=== PATIENT | male | born 1995 | race Caucasian/White ===

== ENCOUNTER 2018-03-04 11:51 | Emergency (ER) | payer OTHER, MEDICAID, SELFPAY ==
[2018-03-04 12:40] LABS: BASO # 0.1 10^3/uL (0.0-0.2); BASO % 0.4 % (0.0-1.0); EOS # 0.1 10^3/uL (0.0-0.50); EOS % 0.5 % (0.0-3.0); HEMATOCRIT 44.3 % (42.0-52.0); HEMOGLOBIN 15.3 g/dl (13.5-17.5); IMMATURE GRANULOCYTE % 0.4 % (0-3.0); LYMPH # 2.2 10^3/uL (1.5-6.5); MEAN CORPUSCULAR HEMOGLOBIN 30.8 pg (27.0-33.0); MEAN CORPUSCULAR HGB CONC 34.5 g/dl (32.0-36.5); MEAN CORPUSCULAR VOLUME 89.3 fl (80.0-96.0); MONO # 0.6 10^3/uL (0.0-0.8); MONO % 4.3 % (0.0-5.0); NEUTROPHILS # 10.8 10^3/uL (1.8-7.7); NEUTROPHILS % 78.4 % (36.0-66.0); PLATELET COUNT, AUTOMATED 219 10^3/uL (150-450); RED BLOOD COUNT 4.96 10^6/uL (4.30-6.10); RED CELL DISTRIBUTION WIDTH 12.5 % (11.5-14.5); WHITE BLOOD COUNT 13.8 10^3/uL (4.0-10.0)
[2018-03-04] MEDS: ONDANSETRON 4MG/2ML VIAL (J2405) IV ×2 (12:41→14:47)
[2018-03-04] MEDS: NS 1,000 ML IV (12:41)
[2018-03-04] MEDS: MORPHINE 2 MG/ML 1ML SYRINGE (J2270) IV (12:42)
[2018-03-04 12:43] LABS: KETONE, URINE AUTO RFX 1+ mg/dL (NEGATIVE); LEUKOCYTE ESTERASE UR AUTO RFX NEGATIVE (NEGATIVE); NITRITE, URINE AUTO RFX NEGATIVE (NEGATIVE); RBC, URINE AUTO RFX 3 /HPF (0-3); SPECIFIC GRAVITY UR AUTO RFX 1.016 (1.002-1.035); SQUAM EPITHELIAL CELL UR AURFX 0 /HPF (0-6); WBC, URINE AUTO RFX 0 /HPF (0-3)
[2018-03-04 12:59] LABS: ALBUMIN 4.9 GM/DL (3.2-5.2); ALBUMIN/GLOBULIN RATIO 1.36 (1.00-1.93); ALKALINE PHOSPHATASE 78 U/L (45-117); ALT/SGPT 24 U/L (12-78); ANION GAP 7 MEQ/L (8-16); AST/SGOT 19 U/L (7-37); BILIRUBIN,DIRECT 0.3 MG/DL (0.0-0.2); BLOOD UREA NITROGEN 17 MG/DL (7-18); CARBON DIOXIDE LEVEL 28 MEQ/L (21-32); CHLORIDE LEVEL 105 MEQ/L (98-107); CREATININE FOR GFR 1.07 MG/DL (0.70-1.30); GLUCOSE, FASTING 111 MG/DL (70-100); LIPASE 96 U/L (73-393); POTASSIUM SERUM 3.9 MEQ/L (3.5-5.1); SODIUM LEVEL 140 MEQ/L (136-145); TOTAL PROTEIN 8.5 GM/DL (6.4-8.2)
[2018-03-04] MEDS ORDERED: ISOVUE-370 76% 100ML VIAL (Q9967) As Ordered (15:13)
[2018-03-04 15:16] LABS: AMPHETAMINES LEVEL URINE NEGATIVE (NEGATIVE); BARBITURATES URINE NEGATIVE (NEGATIVE); BENZODIAZEPINES URINE NEGATIVE (NEGATIVE); CANNABINOIDS URINE NEGATIVE (NEGATIVE); COCAINE METABOLITE URINE NEGATIVE (NEGATIVE); METHADONE URINE NEGATIVE (NEGATIVE); OPIATES URINE NEGATIVE (NEGATIVE); PHENCYCLIDINE URINE NEGATIVE (NEGATIVE)
[2018-03-04] MEDS: METOCLOPRAMIDE INJ 10MG/2ML VIAL (J2765) IV (16:25)
== END 2018-03-04 16:50 | disposition home or self-care (01) ==
LOC: M ED 11:51
DX: R11.2 Nausea with vomiting, unspecified (principal); Z87.09 Personal history of other diseases of the respiratory system; Z87.730 Personal history of (corrected) cleft lip and palate; Z88.1 Allergy status to other antibiotic agents; Q60.0 Renal agenesis, unilateral
CPT/HCPCS: J2405

== ENCOUNTER 2018-03-07 11:39 | Emergency (ER) | payer OTHER ==
[2018-03-07] MEDS: NS 1,000 ML IV ×2 (12:23→13:50)
[2018-03-07 12:34] LABS: BASO % 0.4 % (0.0-1.0); EOS # 0.1 10^3/uL (0.0-0.50); EOS % 0.5 % (0.0-3.0); IMMATURE GRANULOCYTE % 0.3 % (0-3.0); LYMPH # 1.5 10^3/uL (1.5-6.5); LYMPH % 15.7 % (24.0-44.0); MEAN CORPUSCULAR HEMOGLOBIN 30.8 pg (27.0-33.0); MEAN CORPUSCULAR HGB CONC 34.8 g/dl (32.0-36.5); MEAN CORPUSCULAR VOLUME 88.5 fl (80.0-96.0); MONO # 0.3 10^3/uL (0.0-0.8); MONO % 3.6 % (0.0-5.0); NEUTROPHILS # 7.6 10^3/uL (1.8-7.7); NEUTROPHILS % 79.5 % (36.0-66.0); PLATELET COUNT, AUTOMATED 216 10^3/uL (150-450); RED CELL DISTRIBUTION WIDTH 12.1 % (11.5-14.5); WHITE BLOOD COUNT 9.6 10^3/uL (4.0-10.0)
[2018-03-07] MEDS: DICYCLOMINE INJ 20MG/2ML (J0500) IM (12:43)
[2018-03-07] MEDS: TRIMETHOBENZAMIDE HCL INJ 200 MG/2 ML VIAL (J3250) IM (12:44)
[2018-03-07] MEDS: KETOROLAC 30 MG/ML VIAL (J1885) IV (12:46)
[2018-03-07 12:58] LABS: ALBUMIN 4.9 GM/DL (3.2-5.2); ALBUMIN/GLOBULIN RATIO 1.36 (1.00-1.93); ALKALINE PHOSPHATASE 73 U/L (45-117); ALT/SGPT 18 U/L (12-78); AMYLASE 55 U/L (25-115); ANION GAP 8 MEQ/L (8-16); AST/SGOT 16 U/L (7-37); BILIRUBIN,DIRECT 0.3 MG/DL (0.0-0.2); BILIRUBIN,TOTAL 2.5 MG/DL (0.2-1.0); BLOOD UREA NITROGEN 11 MG/DL (7-18); CALCIUM LEVEL 10.1 MG/DL (8.5-10.1); CARBON DIOXIDE LEVEL 27 MEQ/L (21-32); CHLORIDE LEVEL 105 MEQ/L (98-107); CREATININE FOR GFR 1.04 MG/DL (0.70-1.30); GLUCOSE, FASTING 114 MG/DL (70-100); LIPASE 79 U/L (73-393); MAGNESIUM LEVEL 2.1 MG/DL (1.8-2.4); POTASSIUM SERUM 3.6 MEQ/L (3.5-5.1); SODIUM LEVEL 140 MEQ/L (136-145); TOTAL PROTEIN 8.5 GM/DL (6.4-8.2)
[2018-03-07] MEDS: METOCLOPRAMIDE INJ 10MG/2ML VIAL (J2765) IV (13:57)
[2018-03-07 14:24] LABS: APPEARANCE, URINE HAZY (CLEAR); BACTERIA, URINE AUTO NEGATIVE (NEGATIVE); BILIRUBIN, URINE AUTO NEGATIVE (NEGATIVE); BLOOD, URINE BLOOD NEGATIVE (NEGATIVE); COLOR, URINE YELLOW (YELLOW); GLUCOSE, URINE (UA) AUTO NEGATIVE (NEGATIVE); KETONE, URINE AUTO 1+ mg/dL (NEGATIVE); LEUKOCYTE ESTERASE, URINE AUTO NEGATIVE (NEGATIVE); MUCUS, URINE SMALL (NEGATIVE); NITRITE, URINE AUTO NEGATIVE (NEGATIVE); PROTEIN, URINE AUTO NEGATIVE (NEGATIVE); RBC, URINE AUTO 0 /HPF (0-3); SQUAMOUS EPITHELIAL CELL UR AU 0 /HPF (0-6); WBC, URINE AUTO 0 /HPF (0-3)
[2018-03-07] MEDS: ONDANSETRON 4MG/2ML VIAL (J2405) IV (15:10)
[2018-03-07] MEDS: MORPHINE 4 MG/ML 1ML VIAL/SYRINGE (J2270) IV (15:11)
[2018-03-08] MEDS ORDERED: D5W/0.9% SODIUM CHLORIDE 1,000 ML IV (22:11)
[2018-03-08] MEDS ORDERED: ONDANSETRON 4MG/2ML VIAL (J2405) IV (22:15)
== END 2018-03-07 17:30 | disposition home or self-care (01) ==
LOC: M ED 11:39
DX: R10.84 Generalized abdominal pain (principal); R11.2 Nausea with vomiting, unspecified; J45.909 Unspecified asthma, uncomplicated; Z87.09 Personal history of other diseases of the respiratory system; Z87.19 Personal history of other diseases of the digestive system; Z88.1 Allergy status to other antibiotic agents; F12.20 Cannabis dependence, uncomplicated
CPT/HCPCS: J2270

== ENCOUNTER 2018-03-08 16:05 | Inpatient (IN) | payer OTHER ==
[2018-03-08 16:58] LABS: BASO % 0.5 % (0.0-1.0); EOS # 0.1 10^3/uL (0.0-0.50); EOS % 1.2 % (0.0-3.0); HEMATOCRIT 42.7 % (42.0-52.0); HEMOGLOBIN 14.5 g/dl (13.5-17.5); IMMATURE GRANULOCYTE % 0.3 % (0-3.0); LYMPH # 2.5 10^3/uL (1.5-6.5); LYMPH % 31.5 % (24.0-44.0); MEAN CORPUSCULAR HEMOGLOBIN 30.7 pg (27.0-33.0); MEAN CORPUSCULAR VOLUME 90.5 fl (80.0-96.0); MONO # 0.4 10^3/uL (0.0-0.8); MONO % 4.9 % (0.0-5.0); NEUTROPHILS # 4.8 10^3/uL (1.8-7.7); NEUTROPHILS % 61.6 % (36.0-66.0); PLATELET COUNT, AUTOMATED 223 10^3/uL (150-450); RED BLOOD COUNT 4.72 10^6/uL (4.30-6.10); RED CELL DISTRIBUTION WIDTH 12.3 % (11.5-14.5); WHITE BLOOD COUNT 7.8 10^3/uL (4.0-10.0)
[2018-03-08] MEDS: LORazepam 2 MG/ML VIAL (J2060) IV (17:08)
[2018-03-08] MEDS: ONDANSETRON 4MG/2ML VIAL (J2405) IV (17:08)
[2018-03-08] MEDS: NS 1,000 ML IV ×2 (17:09→18:15)
[2018-03-08] MEDS: MORPHINE 4 MG/ML 1ML VIAL/SYRINGE (J2270) IV ×2 (17:17→18:08)
[2018-03-08 17:20] LABS: ALBUMIN 4.9 GM/DL (3.2-5.2); ALBUMIN/GLOBULIN RATIO 1.53 (1.00-1.93); ALKALINE PHOSPHATASE 65 U/L (45-117); ALT/SGPT 25 U/L (12-78); AMYLASE 48 U/L (25-115); ANION GAP 9 MEQ/L (8-16); AST/SGOT 60 U/L (7-37); BILIRUBIN,DIRECT 0.4 MG/DL (0.0-0.2); BILIRUBIN,TOTAL 2.7 MG/DL (0.2-1.0); BLOOD UREA NITROGEN 10 MG/DL (7-18); CALCIUM LEVEL 9.4 MG/DL (8.5-10.1); CARBON DIOXIDE LEVEL 27 MEQ/L (21-32); CHLORIDE LEVEL 106 MEQ/L (98-107); CK-MB VALUE MASS 2.3 NG/ML (<3.6); CPK CREATINE PHOSPHOKINASE 2283 U/L (39-308); CREATININE FOR GFR 1.12 MG/DL (0.70-1.30); GLUCOSE, FASTING 106 MG/DL (70-100); LIPASE 65 U/L (73-393); POTASSIUM SERUM 3.3 MEQ/L (3.5-5.1); SODIUM LEVEL 142 MEQ/L (136-145); TOTAL PROTEIN 8.1 GM/DL (6.4-8.2); TROPONIN I < 0.02 NG/ML (< 0.10)
[2018-03-08 17:32] LABS: KETONE, URINE AUTO RFX 1+ mg/dL (NEGATIVE); LEUKOCYTE ESTERASE UR AUTO RFX NEGATIVE (NEGATIVE); MUCUS, URINE RFX SMALL (NEGATIVE); NITRITE, URINE AUTO RFX NEGATIVE (NEGATIVE); RBC, URINE AUTO RFX 3 /HPF (0-3); SPECIFIC GRAVITY UR AUTO RFX 1.011 (1.002-1.035); SQUAM EPITHELIAL CELL UR AURFX 0 /HPF (0-6); WBC, URINE AUTO RFX 1 /HPF (0-3)
[2018-03-08] MEDS: CLINDAMYCIN 150 MG CAP PO (17:45)
[2018-03-08 17:53] LABS: LACTIC ACID SEPSIS PROTOCOL 1.9 MMOL/L (0.4-2.0)
[2018-03-08] MEDS: KCL 10MEQ/100ML SWI (KRUN) 10 MEQ in APPROPRIATE DILUENT 1 EA IV (18:28)
[2018-03-08] MEDS: NORCO, ANEXSIA 5/325MG TABLET (HYDROcodone/ACETAMINOPHEN) PO (19:35)
[2018-03-08] MEDS: MORPHINE 10 MG/ML 1ML VIAL (J2270) IM (19:36)
[2018-03-08] MEDS ORDERED: ISOVUE-370 76% 100ML VIAL (Q9967) As Ordered (20:16)
[2018-03-08] MEDS: D5W/0.9% SODIUM CHLORIDE 1,000 ML IV (23:21)
[2018-03-09 00:23] LABS: CPK CREATINE PHOSPHOKINASE 1467 U/L (39-308)
[2018-03-09] MEDS: HEPARIN SOD (PORCINE) 5000 UNITS/ML VIAL SC ×2 (05:50→13:24)
[2018-03-09 06:13] LABS: HEMATOCRIT 37.8 % (42.0-52.0); HEMOGLOBIN 12.9 g/dl (13.5-17.5); MEAN CORPUSCULAR HEMOGLOBIN 30.9 pg (27.0-33.0); MEAN CORPUSCULAR HGB CONC 34.1 g/dl (32.0-36.5); MEAN CORPUSCULAR VOLUME 90.6 fl (80.0-96.0); PLATELET COUNT, AUTOMATED 191 10^3/uL (150-450); RED BLOOD COUNT 4.17 10^6/uL (4.30-6.10); RED CELL DISTRIBUTION WIDTH 12.3 % (11.5-14.5); WHITE BLOOD COUNT 8.1 10^3/uL (4.0-10.0)
[2018-03-09 06:37] LABS: ALBUMIN 4.3 GM/DL (3.2-5.2); ALBUMIN/GLOBULIN RATIO 1.54 (1.00-1.93); ALKALINE PHOSPHATASE 61 U/L (45-117); ALT/SGPT 22 U/L (12-78); ANION GAP 6 MEQ/L (8-16); AST/SGOT 46 U/L (7-37); BILIRUBIN,TOTAL 2.2 MG/DL (0.2-1.0); BLOOD UREA NITROGEN 8 MG/DL (7-18); CALCIUM LEVEL 8.9 MG/DL (8.5-10.1); CARBON DIOXIDE LEVEL 29 MEQ/L (21-32); CHLORIDE LEVEL 106 MEQ/L (98-107); CREATININE FOR GFR 1.01 MG/DL (0.70-1.30); GLUCOSE, FASTING 117 MG/DL (70-100); MAGNESIUM LEVEL 2.1 MG/DL (1.8-2.4); POTASSIUM SERUM 3.5 MEQ/L (3.5-5.1); SODIUM LEVEL 141 MEQ/L (136-145); TOTAL PROTEIN 7.1 GM/DL (6.4-8.2)
[2018-03-09 06:45] LABS: CPK CREATINE PHOSPHOKINASE 1435 U/L (39-308)
[2018-03-09] MEDS: D5W/0.9% SODIUM CHLORIDE 1,000 ML IV ×2 (08:50→18:23)
[2018-03-09 11:43] LABS: CPK CREATINE PHOSPHOKINASE 1043 U/L (39-308)
[2018-03-09] MEDS: ONDANSETRON 4MG/2ML VIAL (J2405) IV ×2 (13:25→18:56)
[2018-03-09 17:30] LABS: HEMATOCRIT 36.5 % (42.0-52.0); HEMOGLOBIN 12.4 g/dl (13.5-17.5)
[2018-03-09 17:55] LABS: CPK CREATINE PHOSPHOKINASE 857 U/L (39-308)
[2018-03-10 00:14] LABS: HEMATOCRIT 38.5 % (42.0-52.0); HEMOGLOBIN 13.1 g/dl (13.5-17.5)
[2018-03-10] MEDS: D5W/0.9% SODIUM CHLORIDE 1,000 ML IV (05:23)
[2018-03-10 06:22] LABS: HEMATOCRIT 35.7 % (42.0-52.0); HEMOGLOBIN 12.4 g/dl (13.5-17.5); MEAN CORPUSCULAR HGB CONC 34.7 g/dl (32.0-36.5); MEAN CORPUSCULAR VOLUME 89.3 fl (80.0-96.0); PLATELET COUNT, AUTOMATED 185 10^3/uL (150-450); RED CELL DISTRIBUTION WIDTH 12.1 % (11.5-14.5); WHITE BLOOD COUNT 6.6 10^3/uL (4.0-10.0)
[2018-03-10 06:44] LABS: ALBUMIN 3.6 GM/DL (3.2-5.2); ALBUMIN/GLOBULIN RATIO 1.33 (1.00-1.93); ALKALINE PHOSPHATASE 51 U/L (45-117); ALT/SGPT 18 U/L (12-78); ANION GAP 5 MEQ/L (8-16); AST/SGOT 26 U/L (7-37); BILIRUBIN,TOTAL 1.7 MG/DL (0.2-1.0); BLOOD UREA NITROGEN 7 MG/DL (7-18); CALCIUM LEVEL 8.5 MG/DL (8.5-10.1); CARBON DIOXIDE LEVEL 28 MEQ/L (21-32); CHLORIDE LEVEL 110 MEQ/L (98-107); CREATININE FOR GFR 0.89 MG/DL (0.70-1.30); GLUCOSE, FASTING 106 MG/DL (70-100); POTASSIUM SERUM 3.4 MEQ/L (3.5-5.1); SODIUM LEVEL 143 MEQ/L (136-145); TOTAL PROTEIN 6.3 GM/DL (6.4-8.2)
== END 2018-03-10 14:00 | disposition home or self-care (01) | DRG 249 ==
LOC: M MS5PR 03-09 00:39 → M ED 16:05 → M ED INP 22:50
DX: R11.10 Vomiting, unspecified (principal); K92.0 Hematemesis; M62.82 Rhabdomyolysis; Q60.2 Renal agenesis, unspecified; F17.220 Nicotine dependence, chewing tobacco, uncomplicated; F12.90 Cannabis use, unspecified, uncomplicated; F70 Mild intellectual disabilities; E87.6 Hypokalemia; Z88.1 Allergy status to other antibiotic agents

== ENCOUNTER 2018-12-16 12:12 | Emergency (ER) | payer MEDICAID, OTHER ==
[~2018-12-16] VITALS: Ht 162.6 cm; Wt 56.8 kg
[~2018-12-16 12:12] MED LIST: BACT800T5 PO; BENT10CA PO; IBUP1TAB7 PO; LEVA1TAB2 PO; ONDA4TAB6 PO; PROM1SUP2 PR; REGL10TA6 PO; TRAM50TA2 PO; Trimethoprim/Sulfamethoxazole PO; ZOFR4TAB14 PO
[2018-12-16] MEDS ORDERED: AUGM875T28 PO (12:21)
[2018-12-16 12:47] LABS: HEMATOCRIT 44.6 % (42.0-52.0); HEMOGLOBIN 15.4 g/dl (13.5-17.5); MEAN CORPUSCULAR HEMOGLOBIN 30.7 pg (27.0-33.0); MEAN CORPUSCULAR HGB CONC 34.5 g/dl (32.0-36.5); PLATELET COUNT, AUTOMATED 154 10^3/uL (150-450); RED BLOOD COUNT 5.01 10^6/uL (4.30-6.10)
--- NOTE | 2018-12-16 13:09 | REP ---
Chest x-ray: Two views. History: Syncopal episode . Comparison study: No comparison study . Findings: The lungs are well inflated and free of infiltrate. The pleural angles are sharp. The heart size is normal. Pulmonary vasculature is not increased. No significant bony abnormality is seen. EKG electrodes are seen overlying the chest. Impression: Negative chest x-ray. Electronically Signed by Gerhard Lizarraga MD 12/16/2018 01:00 P
[2018-12-16 13:13] LABS: BLOOD UREA NITROGEN 9 MG/DL (7-18); CALCIUM LEVEL 9.1 MG/DL (8.5-10.1); CARBON DIOXIDE LEVEL 25 MEQ/L (21-32); CHLORIDE LEVEL 103 MEQ/L (98-107); CREATININE FOR GFR 0.95 MG/DL (0.70-1.30); GLOMERULAR FILTRATION RATE > 60.0 (>60); GLUCOSE, FASTING 122 MG/DL (70-100); POTASSIUM SERUM 3.7 MEQ/L (3.5-5.1); SODIUM LEVEL 138 MEQ/L (136-145)
[2018-12-16] MEDS ORDERED: ALBUTEROL 90 MCG/ACT 8GM HFA INHALER INH ONE (14:15)
[2018-12-16] MEDS ORDERED: ISOVUE-370 76% 100ML VIAL (Q9967) As Ordered ONE (14:16)
[2018-12-16] MEDS ORDERED: AZITHROMYCIN 250 MG TAB PO ONE (15:15)
[2018-12-16] MEDS ORDERED: cefTRIAXone SOD 1 GM in D5W MINI-BAG PLUS 50 ML IV ONE (15:15)
--- NOTE | 2018-12-16 15:17 | REP ---
CT pulmonary angiogram: With IV contrast. History: Shortness of breath and syncope. Question pulmonary embolus. Comparison studies: No comparison study. Contrast dose: 75 ML of Isovue [address] technique: Helical scanning is acquired and overlapping 1.5 mm and contiguous 3 mm axial images are reformatted. In addition, maximum intensity projection and multiplanar re-formation images are generated in sagittal and coronal imaging projections. CT pulmonary angiographic findings: There is good opacification in the pulmonary arterial tree. There is no CT evidence of pulmonary embolism. Thoracic aorta enhances homogeneously as well. There is no evidence of aneurysm or dissection. No pleural or pericardial effusion is seen. On lung window settings, there is a diffuse pattern of peribronchial thickening consistent with viral or bronchospastic etiology. There are scattered areas of early parenchymal opacification involving right lower lobe, left lower lobe, and left upper lobe. No hilar or mediastinal mass or adenopathy is observed. There are two normal-sized right hilar lymph nodes. There are two lymph nodes in the left aortopulmonary window region. These measure 0.6. No pulmonary nodule is appreciated. Impression: No CT evidence of pulmonary embolus. Diffuse peribronchial thickening or cuffing consistent with viral or bronchospastic etiology. Multifocal early inflammatory infiltrates bilaterally. Nonspecific mediastinal and right hilar lymph nodes. Electronically Signed by Gerhard Lizarraga MD 12/16/2018 05:52 P
[2018-12-16 15:40] LABS: AMPHETAMINES LEVEL URINE NEGATIVE (NEGATIVE); BARBITURATES URINE NEGATIVE (NEGATIVE); BENZODIAZEPINES URINE NEGATIVE (NEGATIVE); CANNABINOIDS URINE POSITIVE (NEGATIVE); COCAINE METABOLITE URINE NEGATIVE (NEGATIVE); METHADONE URINE NEGATIVE (NEGATIVE); OPIATES URINE NEGATIVE (NEGATIVE); PHENCYCLIDINE URINE NEGATIVE (NEGATIVE)
[2018-12-16] MEDS ORDERED: AZIT-12 PO (16:06)
[2018-12-16 16:28] VITALS: BP 115/78
[2018-12-16] MEDS ORDERED: AMOX/K (19:39)
--- NOTE | 2018-12-16 19:53 | ECGEPIP ---
Stationary ECG Study [facility] - ED Test Date: 2018-12-16 Pat Name: LEELEE PRICE Department: Room: - Gender: M [employer]: REAG[employer] : 1995 Requested By: Basil Mina Order Number: [id number] Reading MD: Basil Mina Measurements Intervals [place] Rate: 63 P: 19 WI: 170 QRS: 3 QRSD: 92 T: 31 QT: 391 QTc: 401 Interpretive Statements SINUS RHYTHM NONSPECIFIC ST T WAVE CHANGES 03/08./ RATE INCREASED NONSPECIFIC ST T [facility]ES Electronically Signed On 12-16-2018 19:52:58 EST by Basil Mina
[2018-12-16] MEDS ORDERED: ZOFR4TAB16 PO (23:01)
== END 2018-12-16 16:38 | disposition home or self-care (01) ==
LOC: M ED 12:12
DX: J18.9 Pneumonia, unspecified organism (principal); R55 Syncope and collapse; H91.91 Unspecified hearing loss, right ear; Q60.0 Renal agenesis, unilateral; Z88.1 Allergy status to other antibiotic agents
CPT/HCPCS: 71046; 71275; 80048; 80307; 85027; 93005; 96374; 99285; J0696; Q9967

== ENCOUNTER 2018-12-16 19:27 | Emergency (ER) | payer MEDICAID, OTHER ==
[~2018-12-16] VITALS: Ht 162.6 cm; Wt 56.8 kg
[~2018-12-16 19:27] MED LIST changes: +AUGM875T28 PO; +AZIT-12 PO
[2018-12-16] MEDS ORDERED: AMOX/K (19:39)
[2018-12-16] MEDS ORDERED: ONDANSETRON 4MG/2ML VIAL (J2405) IV ONE (20:15)
[2018-12-16] MEDS ORDERED: NS 1,000 ML IV ONE ×2 (20:30)
[2018-12-16] MEDS ORDERED: METOCLOPRAMIDE INJ 10MG/2ML VIAL (J2765) IV ONE (20:45)
[2018-12-16 20:46] LABS: BASO % 0.5 % (0.0-1.0); EOS % 0.5 % (0.0-3.0); HEMATOCRIT 48.7 % (42.0-52.0); HEMOGLOBIN 16.9 g/dl (13.5-17.5); LYMPH # 1.5 10^3/uL (1.5-6.5); LYMPH % 17.5 % (24.0-44.0); MEAN CORPUSCULAR HGB CONC 34.7 g/dl (32.0-36.5); MEAN CORPUSCULAR VOLUME 89.4 fl (80.0-96.0); MONO # 0.6 10^3/uL (0.0-0.8); MONO % 7.6 % (0.0-5.0); NEUTROPHILS # 6.2 10^3/uL (1.8-7.7); NEUTROPHILS % 73.7 % (36.0-66.0); PLATELET COUNT, AUTOMATED 208 10^3/uL (150-450); RED BLOOD COUNT 5.45 10^6/uL (4.30-6.10); WHITE BLOOD COUNT 8.5 10^3/uL (4.0-10.0)
[2018-12-16 20:55] LABS: ALBUMIN 4.9 GM/DL (3.2-5.2); ALT/SGPT 24 U/L (12-78); BLOOD UREA NITROGEN 9 MG/DL (7-18); CARBON DIOXIDE LEVEL 26 MEQ/L (21-32); CHLORIDE LEVEL 101 MEQ/L (98-107); CREATININE FOR GFR 1.05 MG/DL (0.70-1.30); GLOMERULAR FILTRATION RATE > 60.0 (>60); GLUCOSE, FASTING 140 MG/DL (70-100); LIPASE 55 U/L (73-393); POTASSIUM SERUM 3.6 MEQ/L (3.5-5.1); SODIUM LEVEL 139 MEQ/L (136-145); TOTAL PROTEIN 9.4 GM/DL (6.4-8.2)
[2018-12-16] MEDS ORDERED: GI COCKTAIL 50ML BTL(HYOSCYAMINE/MAALOX/LIDOCAINE VISCOUS)(1:3:1) PO ONE (21:15)
[2018-12-16] MEDS ORDERED: SUCRALFATE 1 GM TAB PO ONE (21:15)
[2018-12-16] MEDS ORDERED: DICYCLOMINE 10 MG CAP PO ONE (21:15)
[2018-12-16] MEDS: IPRATROPIUM 0.5MG/ALBUTEROL 2.5MG INH SOL UD 3ML (DUONEB)(J7620) NEB PRN ×2 (21:25→22:01)
[2018-12-16] MEDS ORDERED: HALOPERIDOL 5 MG/ML VIAL (J1630) IV ONE (21:30)
[2018-12-16] MEDS ORDERED: ZOFR4TAB16 PO (23:01)
[2018-12-16 23:06] VITALS: BP 128/81
== END 2018-12-16 23:18 | disposition home or self-care (01) ==
LOC: M ED 19:27
DX: R10.84 Generalized abdominal pain (principal); R11.2 Nausea with vomiting, unspecified; J18.9 Pneumonia, unspecified organism; J45.909 Unspecified asthma, uncomplicated; G43.909 Migraine, unspecified, not intractable, without status migrainosus; Z79.2 Long term (current) use of antibiotics
CPT/HCPCS: 80053; 83690; 85025; 94640; 96361; 96374; 96375; 99284; J1630; J2405; J2765

== ENCOUNTER 2019-03-20 11:41 | Emergency (ER) | payer OTHER ==
[~2019-03-20] VITALS: Ht 162.6 cm; Wt 56.8 kg
[~2019-03-20 11:41] MED LIST changes: +AMOX/K; +ZOFR4TAB16 PO
[2019-03-20 12:07] LABS: HEMATOCRIT 43.7 % (42.0-52.0); HEMOGLOBIN 14.7 g/dl (13.5-17.5); MEAN CORPUSCULAR HEMOGLOBIN 31.1 pg (27.0-33.0); MEAN CORPUSCULAR HGB CONC 33.6 g/dl (32.0-36.5); MEAN CORPUSCULAR VOLUME 92.6 fl (80.0-96.0); PLATELET COUNT, AUTOMATED 196 10^3/uL (150-450); RED BLOOD COUNT 4.72 10^6/uL (4.30-6.10)
[2019-03-20 12:51] LABS: ACETAMINOPHEN LEVEL < 2.0 UG/ML (10.0-30.0); ALBUMIN 4.6 GM/DL (3.2-5.2); ALT/SGPT 20 U/L (12-78); BILIRUBIN,DIRECT 0.3 MG/DL (0.0-0.2); BILIRUBIN,TOTAL 1.6 MG/DL (0.2-1.0); BLOOD UREA NITROGEN 14 MG/DL (7-18); CALCIUM LEVEL 9.4 MG/DL (8.5-10.1); CARBON DIOXIDE LEVEL 26 MEQ/L (21-32); CHLORIDE LEVEL 106 MEQ/L (98-107); CREATININE FOR GFR 0.92 MG/DL (0.70-1.30); ETHYL ALCOHOL (ETHANOL) < 0.003 % (0.000-0.010); GLOMERULAR FILTRATION RATE > 60.0 (>60); GLUCOSE, FASTING 107 MG/DL (70-100); POTASSIUM SERUM 3.8 MEQ/L (3.5-5.1); SALICYLATE LEVEL < 1.7 MG/DL (5.0-30.0); SODIUM LEVEL 141 MEQ/L (136-145); THYROID STIMULATING HORMONE 0.446 uIU/ML (0.358-3.740); TOTAL PROTEIN 7.5 GM/DL (6.4-8.2)
[2019-03-20 14:52] LABS: AMPHETAMINES LEVEL URINE NEGATIVE (NEGATIVE); BARBITURATES URINE NEGATIVE (NEGATIVE); BENZODIAZEPINES URINE NEGATIVE (NEGATIVE); CANNABINOIDS URINE POSITIVE (NEGATIVE); COCAINE METABOLITE URINE NEGATIVE (NEGATIVE); METHADONE URINE NEGATIVE (NEGATIVE); OPIATES URINE NEGATIVE (NEGATIVE); PHENCYCLIDINE URINE NEGATIVE (NEGATIVE)
[2019-03-20 16:01] VITALS: BP 129/75
== END 2019-03-20 16:24 | disposition home or self-care (01) ==
LOC: M ED 11:41
DX: F43.20 Adjustment disorder, unspecified (principal); J45.909 Unspecified asthma, uncomplicated; Z88.1 Allergy status to other antibiotic agents
CPT/HCPCS: 36415; 80048; 80076; 80307; 84443; 85027; 99284; G0480